=== PATIENT | female | born 1965 | race Caucasian/White ===

== ENCOUNTER 2017-05-03 08:43 | Emergency (ER) | payer SELFPAY ==
[2017-05-03 09:00] VITALS: BP 149/92
[2017-05-03] MEDS ORDERED: MOTRIN PO ONE (11:27)
[2017-05-03] MEDS ORDERED: FLEXERIL PO ONE (11:27)
--- NOTE | 2017-05-03 13:42 | Cat Scan Report ---
CT LUMBAR SPINE WITHOUT CONTRAST INDICATION: Lumbar spine pain. COMPARISON: None similar at this institution. FINDINGS: Noncontrast axial, sagittal and coronal CT reconstructions through the lumbar spine suggests conus medullaris terminating behind L1-L2. Approximately 2.3 cm left lower renal cortical cyst. Normal paraspinal soft tissues. Intact SI joints. Normal vertebral body stature, alignment and disc heights. Slight L4-L5 endplate irregularities/Schmorl's nodes. Approximately 7 mm Schmorl's node/slight depression along L2 superior endplate as well. Approximately 5 mm L4 vertebral body probable hemangioma. On the obtained axial images: L4-L5 demonstrates mild central to left paracentral disc protrusion with mild ventral thecal sac effacement, axial image 147, series 2. No exiting left L4 nerve root compression. CONCLUSION: No acute lumbar spine CT abnormality, though mild L4-L5 degenerative changes with a small central to left paracentral disc protrusion noted and few other incidental findings, as detailed above. Thank you for the opportunity to participate in this patient's care.
--- NOTE | 2017-05-04 15:50 | Emergency Department Report ---
Entered by JEREL KILGORE, acting as scribe for BAIRON ESPNIOZA PA. ED Back Pain/Injury HPI - General Chief Complaint: Back Pain/Injury Stated Complaint: BACK PAIN Time Seen by Provider: 05/03/17 11:07 Source: patient Limitations: Language Barrier - History of Present Illness Initial Comments: 51 y/o female presents with intermittent, achy, severe lower back pain radiating to the bilateral legs that started 4 days ago and is worsened by movement and lying on side. pt denies fever, dysuria, abdominal pain, upper back pain, diarrhea, chills or n/v, chest pain. She denies any injuries or falls or trauma to the back or legs she denies any calf pain bilat . Pt is ambulatory. MD Complaint: back pain -: days(s) (4) Similar Symptoms Previously: Yes Place: home Radiation: buttocks, left leg, right leg Severity: severe Severity scale (0 -10): 9 Quality: aching Consistency: constant Improves With: none Worsens With: other (lying on side and movement) Context: unknown Associated Symptoms: denies other symptoms, other (sensation of wanting to urinate). denies: confusion, weakness, chest pain, numbness, difficulty walking , cough, difficulty urinating, diaphoresis, incontinence, fever/chills, constipation, headaches, abdominal pain, loss of appetite, malaise, rash, seizure, shortness of breath, syncope - Related Data Home Medications Medication Instructions Recorded Confirmed Last Taken Metoprolol [Lopressor] 25 mg PO DAILY 05/03/17 05/03/17 05/03/17 Previous Rx's Medication Instructions Recorded Last Taken Type Cyclobenzaprine [Flexeril] 10 mg PO QHS PRN #20 tablet 05/03/17 Unknown Rx Ibuprofen [Motrin 800 MG tab] 800 mg PO Q8HR PRN #30 tablet 05/03/17 Unknown Rx Allergies Allergy/AdvReac Type Severity Reaction Status Date / Time Penicillins Allergy Swelling Verified 05/03/17 08:49 ED Review of Systems Comment: All other systems reviewed and negative Constitutional: denies: chills, fever Respiratory: denies: cough, shortness of breath Cardiovascular: denies: chest pain Gastrointestinal: denies: abdominal pain, nausea, vomiting, diarrhea Musculoskeletal: back pain Skin: denies: rash Neurological: denies: headache, numbness ED Past Medical Hx - Past Medical History Previous Medical History?: Yes Hx Hypertension: Yes Hx GERD: Yes (takes Tums) - Surgical History Past Surgical History?: No - Social History Smoking Status: Never Smoker Substance Use Type: Non Opiate Pain, Prescribed - Medications Home Medications: Home Medications Medication Instructions Recorded Confirmed Last Taken Type Cyclobenzaprine [Flexeril] 10 mg PO QHS PRN #20 tablet 05/03/17 Unknown Rx Ibuprofen [Motrin 800 MG tab] 800 mg PO Q8HR PRN #30 tablet 05/03/17 Unknown Rx Metoprolol [Lopressor] 25 mg PO DAILY 05/03/17 05/03/17 05/03/17 History ED Physical Exam - General Limitations: Language Barrier - Other Other exam information: GENERAL: Patient is alert and oriented x 3. No apparent distress, normal gait, atraumatic. HEAD: Head is normocephalic and atraumatic. EYES: Extraocular movements are intact. Pupils are equal, round, and reactive to light and accommodation. BACK: TTP noted to left buttocks region. Positive straight leg raise on left leg. Low-dose final tenderness Full, painful ROM NECK: Supple. Non edematous, no carotid bruits. No lymphadenopathy or thyromegaly. LUNGS: Symmetrical with respiration, no wheezing, no rales, no crackles, CTAB HEART: Regular rate and rhythm with normal S1/S2 present. No murmurs, rubs, or gallops. ABDOMEN: Soft, nondistended. Nontender to palpation on all quadrants. No organomegaly was noted. Positive bowel sounds. No CVA tenderness. EXTREMITIES/MUSCULOSKELETAL: No cyanosis, clubbing, rash, lesions or edema. Full ROM bilaterally. UE/LE Pulses 2+ bilaterally. LE and UE 5+ strength bilaterally SKIN: Warm and dry. No lesions, ulceration or induration present NEUROLOGIC: No focal deficit., Cranial nerves II - XII are grossly intact. No loss of sensation. No facial droop. . PSYCHIATRIC: Mood is congruent with affect. ED Course Vital Signs 05/03/17 08:50 Temperature 98.4 F Pulse Rate 59 L Respiratory 18 Rate Blood Pressure 149/92 O2 Sat by Pulse 99 Oximetry ED Medical Decision Making - Radiology Data Radiology results: report reviewed, image reviewed CT LUMBAR SPINE WITHOUT CONTRAST INDICATION: Lumbar spine pain. COMPARISON: None similar at this institution. FINDINGS: Noncontrast axial, sagittal and coronal CT reconstructions through the lumbar spine suggests conus medullaris terminating behind L1-L2. Approximately 2.3 cm left lower renal cortical cyst. Normal paraspinal soft tissues. Intact SI joints. Normal vertebral body stature, alignment and disc heights. Slight L4-L5 endplate irregularities/Schmorl's nodes. Approximately 7 mm Schmorl's node/slight depression along L2 superior endplate as well. Approximately 5 mm L4 vertebral body probable hemangioma. On the obtained axial images: L4-L5 demonstrates mild central to left paracentral disc protrusion with mild ventral thecal sac effacement, axial image 147, series 2. No exiting left L4 nerve root compression. CONCLUSION: No acute lumbar spine CT abnormality, though mild L4-L5 degenerative changes with a small central to left paracentral disc protrusion noted and few other incidental findings, as detailed above. Thank you for the opportunity to participate in this patient's care. Transcribed By: RS Dictated By: JOSE ARREDONDO MD Electronically Authenticated By: JOSE ARREDONDO MD Signed Date/Time: 05/03/17 1338 - Medical Decision Making 51 y/o female presents with lumbar radiculopathy ED course: Pt denies any fall or trauma to the back. Pt is not-ill appearing. She was administered Flexeril and Motrin for pain CT of the lumbar spine ordered, CT of the lumbar spine report is not seen prior to patient's discharge due to IT problems in the ED. Discuss initial findings patient prior to his CT report based on reading the image Discussed with pt to avoid strenuous activity for the next couple of days. Discussed the follow-up physician as referred. Patient reports feeling a bit better and is a little bit better without pain Discuss her symptoms return or worsen to return to the ED Pt states understanding and will follow instructions. [employer] used as pt speaks Kinyarwanda only. Vital signs stable. Patient is in no acute distress. ED Disposition Clinical Impression: Lumbar radiculopathy Disposition: DC-01 TO HOME OR SELFCARE Is pt being admited?: No Does the pt Need Aspirin: No Condition: Stable Instructions: Lumbar Disc Herniation (ED), Low Back Strain (ED), Lumbar Radiculopathy (ED) Prescriptions: Cyclobenzaprine [Flexeril] 10 mg PO QHS PRN #20 tablet PRN Reason: Muscle Spasm Ibuprofen [Motrin 800 MG tab] 800 mg PO Q8HR PRN #30 tablet PRN Reason: Pain Referrals: PRIMARY CARE, [Primary Care Provider] - 3-5 Days BRITTANY JENNINGS MD [Staff Physician] - 3-5 Days JAQUELIN ROJO MD [Staff Physician] - 3-5 Days EDWARD MUNSON MD [Referring] - 3-5 Days [facility] [Outside] - 3-5 Days [facility] [Outside] - 3-5 Days Forms: Work/School Release Form Time of Disposition: 13:22 Print Language: BURKINAN This documentation as recorded by the JAME zhao RYAN,accurately reflects the service I personally performed and the decisions made by ALEXIS valente OYINLOLA A, PA.
== END 2017-05-03 13:35 | disposition home or self-care (01) ==
LOC: ED 08:43
DX: M54.16 Radiculopathy, lumbar region (principal); I10 Essential (primary) hypertension; K21.9 Gastro-esophageal reflux disease without esophagitis; Z88.0 Allergy status to penicillin
CPT/HCPCS: 72131

== ENCOUNTER 2018-11-25 08:52 | Outpatient (CLI) | payer OTHER ==
[2018-11-25 11:17] LABS: Hematocrit 38.5 % (30.3-42.9); Hemoglobin 12.7 gm/dl (10.1-14.3); Mean Corpuscular HGB Conc 33 % (30-34); Mean Corpuscular Volume 88 fl (79-97); Platelet Count 246 K/mm3 (140-440); Red Blood Count 4.38 M/mm3 (3.65-5.03); Red Cell Distribution Width 13.6 % (13.2-15.2)
[2018-11-25 11:23] LABS: Alanine Aminotransferase 8 units/L (7-56); Albumin 4.4 g/dL (3.9-5); BUN/Creatinine Ratio 28; Blood Urea Nitrogen 14 mg/dL (7-17); Calcium 9.4 mg/dL (8.4-10.2); Chol/HDL Ratio 2.38 %; HDL Cholesterol 67 mg/dL (40-59); Hemolysis Index 4; LDL Cholesterol,Direct 94 mg/dL (50-130)
== END 2018-11-25 08:53 | disposition home or self-care (01) ==
LOC: LAB 08:52
PROVIDERS: ATTEND Internal Medicine
DX: Z00.01 Encounter for general adult medical examination with abnormal findings (principal); I10 Essential (primary) hypertension; B35.1 Tinea unguium; K21.9 Gastro-esophageal reflux disease without esophagitis
CPT/HCPCS: 36415; 80053; 80061; 82306; 82607; 83036; 84443; 85027

== ENCOUNTER 2018-11-30 08:45 | Outpatient (CLI) | payer OTHER ==
--- NOTE | 2018-11-30 13:13 | Mammography Report ---
BILATERAL DIGITAL SCREENING MAMMOGRAM with CAD: 11/30/18 08:45:00 CLINICAL: Routine screening. COMPARISON:None available. FINDINGS: The breasts are heterogeneously dense, which may obscure small masses. No mass, architectural distortion or suspicious calcifications. IMPRESSION: No mammographic evidence of malignancy. BI-RADS CATEGORY: 1 - - Negative RECOMMENDATION: Routine mammographic screening in one year. COMMENT: Patient follow-up letters are generated by our [employer] application.
== END 2018-11-30 08:46 | disposition home or self-care (01) ==
LOC: MAMMO 08:45
PROVIDERS: ATTEND Internal Medicine
DX: Z12.31 Encounter for screening mammogram for malignant neoplasm of breast (principal); I10 Essential (primary) hypertension; K21.9 Gastro-esophageal reflux disease without esophagitis
CPT/HCPCS: 77067